=== PATIENT | female | born 1965 | race Caucasian/White ===

== ENCOUNTER 2022-03-22 17:10 | Emergency (ER) | payer SELFPAY ==
[2022-03-22] VITALS (10 sets, daily range): BP systolic 92–118; BP diastolic 46–63; PULSE 105–121; RESP 16–35; TEMP 36.7; O2SAT 88–95
--- NOTE | 2022-03-22 17:22 | ECG_ITS ---
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 Measurements Intervals [place] Rate: 121 P: 53 RI: 107 QRS: 82 QRSD: 86 T: -6 QT: 289 QTc: 412 Interpretive Statements SINUS TACHYCARDIA WITH SHORT RI INTERVAL NONSPECIFIC ST & T-WAVE ABNORMALITY No previous ECG available for comparison Electronically Signed On 03-23-2022 16:51:24 PROFESSOR OF FOREST PLANNING by Cait Yuen M.D. [email or web address] ([id number]
--- NOTE | 2022-03-22 17:54 | XRR_ITS ---
PROCEDURE INFORMATION: Exam: XR Chest Exam date and time: 03/22/2022 6:11 PM Age: 57 years old Clinical indication: Chest wall pain; Additional info: Cp TECHNIQUE: Imaging protocol: Radiologic exam of the chest. Views: 1 view. COMPARISON: No relevant prior studies available. FINDINGS: Lungs: Probable emphysema. Linear atelectasis or scarring in the lung bases and right mid lung. Consolidation in the medial right lung base. Pleural spaces: Right pleural effusion which may be loculated laterally. No pneumothorax. Heart/Mediastinum: Unremarkable. No cardiomegaly. Bones/joints: C-spine fusion hardware. XR/XR chest 1V portable [id number] IMPRESSION: 1. Right pleural fluid which may be loculated laterally. An empyema is not excluded. Consider follow-up CT imaging. 2. Atelectasis and/or possible pneumonia in the right lung base.
--- NOTE | 2022-03-22 18:17 | CTR_ITS ---
PROCEDURE INFORMATION: Exam: CTA Chest With Contrast Exam date and time: 03/22/2022 7:55 PM Age: 57 years old Clinical indication: Pain and abnormal findings; Abnormal diagnostic tests; Elevated d-dimer; Cough and shortness of breath; Right-sided; Patient HX: C/O RT side chest pain with cough and SOB. D dimer elevation. TECHNIQUE: Imaging protocol: Computed tomographic angiography of the chest with contrast. 3D rendering (Not supervised by radiologist): MIP and/or 3D reconstructed images were created by the technologist. Radiation optimization: All CT scans at this facility use at least one of these dose optimization techniques: automated exposure control; mA and/or kV adjustment per patient size (includes targeted exams where dose is matched to clinical indication); or iterative reconstruction. Contrast material: OMNI 350; Contrast volume: 100 ml; Contrast route: INTRAVENOUS (IV); COMPARISON: CR (CHEST, ) 03/22/2022 6:11 PM RADIATION DOSE METRICS: Total DLP (mGy-cm): 191.88 FINDINGS: Pulmonary arteries: Normal. No pulmonary emboli. Aorta: Unremarkable. No aortic aneurysm. No aortic dissection. Lungs: Large complicated right pleural fluid collection which creates scalloping along the collapsed portions of the right lung. There is loculated fluid extending into the minor and major fissures on the right. No pneumothorax. Peripheral consolidation in the right upper lobe. Complete collapse of the right lower lobe and partial collapse of the right middle lobe. Discoid atelectasis in the left lower lobe and posterior left upper lobe. Pleural spaces: Small simple appearing left pleural effusion. Mild thickening of the posterior right parietal pleura. Heart: Pericardial effusion. The heart size is normal. Lymph nodes: Prominent mediastinal and hilar lymph nodes are most likely reactive. Liver: Hypodensity in the liver is too small to characterize but is most likely a cyst. No follow-up imaging is recommended. Bones/joints: C-spine fusion hardware. Mild degenerative changes of the thoracic spine. Old left rib fractures. No acute fracture. Soft tissues: Unremarkable. CT/CT angio chest PE protcl [id number] IMPRESSION: 1. Large complicated right pleural effusion with extension into the fissures, and with mild parietal pleural thickening. An empyema is not excluded. 2. Collapse of the right lower lobe with partial collapse of the right middle lobe. Superimposed pneumonia is not excluded. 3. Small left pleural effusion with atelectasis.
--- NOTE | 2022-03-22 18:22 | ED_ITS ---
HPI - General Adult General: Chief complaint: General Medical Stated complaint: chest pains Time Seen by Provider: 03/22/22 18:07 Source: patient Mode of arrival: ambulatory Limitations: no limitations History of Present Illness: 57-year-old female who states over the last 5 days has been having right-sided chest and flank pain states she is also had a cough and increasing shortness of breath. States pain is sharp in nature she is hypoxic here denies any history of any lung issues is a smoker she denies any vomiting or diarrhea. She rates her pain a 6 out of 10 currently Associated symptoms: Reports chest pain and dyspnea; Deny headache(s), nausea, rash or vomiting Review of Systems Const: Denies: fever(s), chills, body aches or change in appetite Eyes: Denies: blurry vision or eye discomfort ENMT: Denies: throat pain or dental pain Card: Reports: chest pain Resp: Reports: dyspnea and non-productive cough GI: Denies: abdominal pain, nausea, vomiting or diarrhea : Denies: dysuria Musc: Denies: neck pain or back pain Skin/Breast: Denies: rash Neuro: Denies: headache(s) Psych: Denies: depression Kyler/Lymph: Denies: easy bruising All/Imm: Denies: urticaria PFSH ED PFSH: Medical History (Updated 03/22/22 @ 23:33 by Abigail Wallis MD) No pertinent past medical history Social History (Updated 03/22/22 @ 18:24 by Abigail Wallis MD) Smoking and tobacco status: current every day smoker Physical Exam Const: COMMON NORMALS: patient oriented x3 GENERAL APPEARANCE: in distress and ill appearing HENMT: COMMON NORMALS: normocephalic and atraumatic HEAD & SCALP: normocephalic and atraumatic Eye: COMMON NORMALS: Equal, round and reactive pupils present and EOMs intact bilaterally PUPIL: Yes Equal, round and reactive pupils present Neck/C-Spine: COMMON NORMALS: full ROM and supple Chest: COMMONS NORMALS: normal inspection of the chest and normal palpation of entire chest wall Resp: COMMON NORMALS: No retractions and No use of accessory muscles EFFORT & INSPECTION: Yes tachypneic AUSCULTATION: diminished lung sounds on the ri ght Cardio: COMMON NORMALS: regular rhythm and No murmurs present (Cardio) RATE: tachycardic RHYTHM: regular rhythm GI: COMMON NORMALS: Normal to inspection, nondistended, normoactive bowel sounds present, Soft to palpation, non-tender and no masses PALPATION: Yes Soft to palpation Extremity: COMMON NORMALS: normal to inspection and full ROM Neuro: COMMON NORMALS: patient oriented x3, moves all extremities and no focal motor deficits Psych: COMMON NORMALS: mental status grossly normal, Normal thought process present and cooperative THOUGHT PROCESS: Normal thought process present Skin: COMMON NORMALS: no rashes or lesions noted and no wounds GENERAL SKIN EXAM: no rashes or lesions noted Course Vital Signs: Vital signs: Vital Signs Temperature 98.1 F 03/22/22 17:22 Pulse Rate 105 H 03/22/22 20:30 Respiratory Rate 28 H 03/22/22 22:30 Blood Pressure 107/46 03/22/22 22:30 Pulse Oximetry 93 03/22/22 22:30 Oxygen Delivery Me thod 03/22/22 18:35 MDM - General Adult Medical Decision Making Patient presents here with shortness of breath along with pain she was found to have an empyema spoke to [facility] will transfer there for higher level care for CV surgery. Lab Data 03/22/22 18:25 03/22/22 18:25 Radiology Impressions Chest X-Ray 03/22/22 17:54 IMPRESSION: 1. Right pleural fluid which may be loculated laterally. An empyema is not excluded. Consider follow-up CT imaging. 2. Atelectasis and/or possible pneumonia in the right lung base. Chest CTA 03/22/22 18:17 IMPRESSION: 1. Large complicated right pleural effusion with extension into the fissures, and with mild parietal pleural thickening. An empyema is not excluded. 2. Collapse of the right lower lobe with partial collapse of the right middle lobe. Superimposed pneumonia is not excluded. 3. Small left pleural effusion with atelectasis. Laboratory Results WBC 34.4 10^3/uL (4.0-10.0) H* 03/22/22 18:25 RBC 4.49 10^6/uL (4.1-5.3) 03/22/22 18:25 Hgb 12.5 g/dL (11.5-15.3) 03/22/22 18:25 Hct 39.1 % (37.0-47.0) 12/27/22 18: MCV 87.1 fl (81-99) 03/22/22 18: MCH 27.8 pg (28.0-34.0) L 03/22/22 18: MCHC 32.0 g/dL (30.0-36.0) 03/22/22 18: RDW 14.5 % (12.1-15.1) 03/22/22 18: Plt Count 552 10^3/cmm (130-400) H 03/22/22 18:25 MPV 8.7 fL (7.4-10.4) 03/22/22 18: Neut % (Auto) 89.4 % 03/22/22 18: Lymph % (Auto) 3.1 % 03/22/22 18: [place] % (Auto) 5.9 % 03/22/22 18: Eos % (Auto) 0.0 % 03/22/22 18: Baso % (Auto) 0.3 % 03/22/22 18: Neut # (Auto) 30.71 10^3/uL (1.8-7.7) H 03/22/22 18: Lymph # (Auto) 1.1 10^3/uL (0.8-4.8) 03/22/22 18: [place] # (Auto) 2.0 10^3/uL (0.2-0.9) H 03/22/22 18:25 Eos # (Auto) 0.0 10^3/uL (0.0-0.8) 03/22/22 18: Baso # (Auto) 0.1 10^3/uL (0.0-0.1) 03/22/22 18: Nucleated RBC % (auto) 0 % 03/22/22: Nucleated RBCs # 0.0 /100WBC 03/22/22 18: PT 18.30 SECONDS (12.1-14.9) H 03/22/22 18:25 INR 1.49 (0.8-1.2) H 03/22/22 18:25 D-Dimer 3.14 ug/mIFEU (0-0.59) H 03/22/22 18:25 Sodium 131 mmol/L (136-145) L 03/22/22 18:25 Potassium 4.4 mmol/L (3.5-5.1) 03/22/22 18:25 Chloride 94 mmol/L (98-107) L 03/22/22 18:25 Carbon Dioxide 28 mmol/L (22-29) 03/22/22 18:25 Anion Gap 13.4 (5-19) 03/22/22 18:25 BUN 10 mg/dL (6-20) 03/22/22 18:25 Creatinine 0.4 mg/dL (0.5-0.9) L 03/22/22 18:25 GFR Calculation 165.1 mL/min (90-130) H 03/22/22 18:25 Glucose 98 mg/dL (65-115) 03/22/22 18:25 Calculated Osmolality 271 mOsm/kg (285-295) L 03/22/22 18:25 Lactate 1.5 mmol/L (0.5-2.2) 03/22/22 18:23 Calcium 9.3 mg/dL (8.5-10.5) 03/22/22 18:25 Total Bilirubin 0.6 mg/dL (0.15-1.2) 03/22/22 18:25 AST 13 U/L (0-32) 03/22/22 18:25 ALT 9 U/L (0-33) 03/22/22 18:25 Alkaline Phosphatase 150 U/L (35-105) H 03/22/22 18:25 Troponin T Baseline 10 ng/L (0-10) 03/22/22 18:25 Troponin T 120 Minute 7.22 ng/L (0-10) 03/22/22 20:36 Delta Troponin T -2.78 ABS# (0-10) L 03/22/22 20:36 NT-Pro-B Natriuret Pep 224 pg/mL (0-125) H 03/22/22 18:25 Total Protein 7.4 g/dL (6.6-8.7) 03/22/22 18:25 Albumin 3.2 g/dL (3.5-5.2) L 03/22/22 18:25 Globulin 4.2 g/dL (1.3-4.6) 03/22/22 18:25 SARS-CoV-2 Ag (Rapid) negative (Negative) 03/22/22 22:53 EKG Data EKG 1: I personally reviewed and interpreted this EKG as follows: EKG interpretation date: 03/22/22 EKG interpretation time: 17: Interpretation: sinus tach hr [address] or t wave abnormalities qrs 86 qtc 361 Computer generated interpretation: Chest X-Ray 03/22/22 17:54 IMPRESSION: 1. Right pleural fluid which may be loculated laterally. An empyema is not excluded. Consider follow-up CT imaging. 2. Atelectasis and/or possible pneumonia in the right lung base. Chest CTA 03/22/22 18:17 IMPRESSION: 1. Large complicated right pleural effusion with extension into the fissures, and with mild parietal pleural thickening. An empyema is not excluded. 2. Collapse of the right lower lobe with partial collapse of the right middle lobe. Superimposed pneumonia is not excluded. 3. Small left pleural effusion with atelectasis. Critical Care Time Critical Care Time: Critical Care Time: Yes Total Critical Care Time: 35 Attestation: The high probability of a clinically significant, sudden or life threatening deterioration of the patient's resp system(s) required my full and direct attention, intervention and personal management. The critical care time is as shown. This time is in addition to time spent performing any reported procedures but includes the following: [x] Data and vital sign review and interpretation [x] Patient assessment, examination and intervention [x] Documentation [x] Medication orders and management Discharge Plan Discharge Patient Disposition: Xfer Short-Term Hosp Clinical Impression: Empyema Coding Level of Care Code ED Automation Control Technician for Chg Fwd Exam Comprehensive
[2022-03-22 18:33] LABS: Basophils # 0.1 10^3/uL (0.0-0.1); Basophils % 0.3 %; Hematocrit 39.1 % (37.0-47.0); Hemoglobin 12.5 g/dL (11.5-15.3); Lymphocytes # 1.1 10^3/uL (0.8-4.8); Lymphocytes % 3.1 %; Mean Corpuscular Hemoglobin 27.8 pg (28.0-34.0); Mean Corpuscular Volume 87.1 fl (81-99); Mean Platelet Volume 8.7 fL (7.4-10.4); Monocytes % 5.9 %; Neutrophils # 30.71 10^3/uL (1.8-7.7); Neutrophils % 89.4 %; Nucleated Red Blood Cells % 0 %; Platelet Count 552 10^3/cmm (130-400); Red Blood Count 4.49 10^6/uL (4.1-5.3); Red Cell Distribution Width 14.5 % (12.1-15.1)
[2022-03-22 18:44] LABS: Slide Review Slide Review Perform; White Blood Count 34.4 10^3/uL (4.0-10.0)
[2022-03-22 18:47] LABS: INR 1.49 (0.8-1.2)
[2022-03-22 18:56] LABS: D Dimer 3.14 ug/mIFEU (0-0.59)
[2022-03-22] MEDS: vancomycin 1,000 MG in sodium chloride 0.9% 250 ML 250 MG IV (18:57)
[2022-03-22] MEDS: piperacillin-tazobactam 3.375 GM in sodium chloride 0.9% (plus) 50 ML IV (18:57)
[2022-03-22 19:00] LABS: Troponin(5th) Baseline 10 ng/L (0-10)
[2022-03-22 19:07] LABS: Alanine Aminotransferase 9 U/L (0-33); Albumin Level 3.2 g/dL (3.5-5.2); Alkaline Phosphatase 150 U/L (35-105); Aspartate Amino Transferase 13 U/L (0-32); Blood Urea Nitrogen 10 mg/dL (6-20); Calcium 9.3 mg/dL (8.5-10.5); Carbon Dioxide 28 mmol/L (22-29); Chloride 94 mmol/L (98-107); Globulin 4.2 g/dL (1.3-4.6); Glomerular Filtration Rate 165.1 mL/min (90-130); Glucose 98 mg/dL (65-115); NT Pro B Type Natriuretic Pept 224 pg/mL (0-125); Osmolality Calculated 271 mOsm/kg (285-295); Sodium 131 mmol/L (136-145); Total Bilirubin 0.6 mg/dL (0.15-1.2); Total Protein 7.4 g/dL (6.6-8.7)
[2022-03-22 19:09] LABS: Anion Gap 13.4 (5-19); Potassium 4.4 mmol/L (3.5-5.1)
[2022-03-22 19:31] LABS: Lactate (Lactic Acid level) 1.5 mmol/L (0.5-2.2)
--- NOTE | 2022-03-22 19:54 | ECG_ITS ---
[facility] Test Date: 2022-03-22 Pat Name: Sun Cantrell Department: Room: Gender: Female Head Transfer Clerk: : 1965 Requested By: Abigail Wallis Order Number: [id number] Fadia MD: Cait Yuen M.D. Measurements Intervals [place] Rate: 105 P: 76 ND: 111 QRS: 85 QRSD: 90 T: 76 QT: 328 QTc: 435 Interpretive Statements SINUS TACHYCARDIA WITH SHORT ND INTERVAL ABNORMAL RHYTHM ECG Compared to ECG 03/22/2022 17:22:58 T-wave abnormality no longer present Electronically Signed On 03-23-2022 16:56:04 FLAVORER by Cait Yuen M.D. [id number]
[2022-03-22] MEDS: iohexol 350 mg/mL 500 mL Btl (per mL) IV (20:08)
[2022-03-22] MEDS: sodium chloride 0.9% 1,000 ML 999 ML IV (20:53)
[2022-03-22 21:28] LABS: Troponin 5 2HR 7.22 ng/L (0-10)
[2022-03-22 21:34] LABS: Troponin 5 2HR Delta -2.78 ABS# (0-10)
[2022-03-22 23:27] LABS: SARS Covid-2 Antigen negative (Negative)
[2022-03-22] MEDS: LORazepam 1 mg Tablet PO (23:34)
--- NOTE | 2022-03-22 23:54 | ECG_ITS ---
[facility] Test Date: 2022-03-23 Pat Name: Sun Cantrell Department: Room: Gender: Female Flight Control Specialist: : 1965 Requested By: Abigail Wallis Order Number: [id number] Fadia MD: Cait Yuen M.D. Measurements Intervals [place] Rate: 102 P: 73 [place]: 121 QRS: 84 QRSD: 90 T: 73 QT: 329 QTc: 429 Interpretive Statements SINUS TACHYCARDIA Compared to ECG 03/22/2022 20:33:26 Short [place] interval no longer present Electronically Signed On 03-23-2022 16:54:33 BACKUP ADMINISTRATIVE COORDINATOR by Cait Yuen M.D. [id number]
[2022-03-23] VITALS: BP 89/60; PULSE 96; RESP 34; O2SAT 96
--- NOTE | 2022-03-23 00:21 | PC.NURSE ---
Report called to Blake carballo. Information given to receiving nurse- Valeria Ceballos RN prior to pt transfer to room # 535-2.
[2022-03-23 00:30] VITALS: BP 111/69; PULSE 102; RESP 28; O2SAT 93
[2022-03-23 01:27] VITALS: BP 111/69; PULSE 102; RESP 28; O2SAT 93
== END 2022-03-23 01:29 | disposition short-term general hospital (02) ==
PROVIDERS: Emergency Provider Emergency Medicine
DX: J86.9 Pyothorax without fistula (principal); Z20.822 Contact with and (suspected) exposure to COVID-19; F17.210 Nicotine dependence, cigarettes, uncomplicated
CPT/HCPCS: 36415; 71045; 71275; 80053; 83605; 83880; 84484; 85025; 85378; 85610; 87040; 87426; 93005; 96365; 96366; 96367; 99291; J2543; J3370; J7030; J7050; Q9967